=== PATIENT | male | born 1985 | race Caucasian/White ===

== ENCOUNTER 2022-05-21 04:06 | Emergency (ER) | payer OTHER ==
[2022-05-21 04:31] VITALS: BP 158/92; PULSE 70; RESP 20; TEMP 98.4; BMI 42.3
[2022-05-21] MEDS ORDERED: DEXAMETHASONE SOD PHOSPHATE 10 MG/1 ML VIAL IM ONE (05:22)
[2022-05-21] MEDS ORDERED: KETOROLAC TROMETHAMINE 30 MG/1 ML VIAL IM ONE (05:22)
[2022-05-21] MEDS ORDERED: AMOX TR/POT CLAV 875MG/125MG TABLETS (FP) PO ONE (05:26)
[2022-05-21] MEDS ORDERED: DEXAMETHASONE SOD PHOSPHATE 10 MG/1 ML VIAL ONE (05:30)
[2022-05-21] MEDS ORDERED: AMOX TR/POT CLAV 875MG/125MG TABLETS (FP) ONE (05:30)
[2022-05-21] MEDS ORDERED: KETOROLAC TROMETHAMINE 30 MG/1 ML VIAL ONE (05:30)
== END 2022-05-21 06:56 | disposition home or self-care (01) ==
LOC: JER 04:06
PROC: 3E023GC Introduction of Other Therapeutic Substance into Muscle, Percutaneous Approach (ICD-10-PCS; principal; 2022-05-21)
DX: H66.92 Otitis media, unspecified, left ear (principal)
CPT/HCPCS: 0241U-QW; 82962; 99284-25; J1100

== ENCOUNTER 2022-11-05 07:23 | Emergency (ER) | payer OTHER ==
[2022-11-05 07:27] VITALS: BP 156/82; PULSE 61; RESP 18; TEMP 97.8; BMI 35.9
[2022-11-05] MEDS ORDERED: ONDANSETRON 4 MG/2 ML VIAL IVPUSH ONE ×2 (07:51→08:07)
[2022-11-05] MEDS ORDERED: FAMOTIDINE 20 MG/50 ML IVPB 20 MG/50 ML MG IVPB ONE ×3 (07:51→08:23)
[2022-11-05] MEDS ORDERED: LACTATED RINGERS SOLUTION 1000 ML INFUS.BAG IV ONE ×4 (07:51→09:39)
[2022-11-05] MEDS ORDERED: morphine CARPU-JECT 4 MG/1 ML DISP.SYRIN IVPUSH ONE (07:52)
[2022-11-05 08:43] LABS: BASO % 0.5 % (0-2.0); EOS % 2.7 % (0-4.5); HEMOGLOBIN 16.1 GM/dL (11.7-16.9); LYMPH % 27.3 % (8-40); MCH 30.2 pg (25.7-33.7); MCHC 35.8 g/dl (32.0-35.9); MEAN CELL VOLUME 84.4 fl (80-96); MEAN PLT VOLUME 8.2 fl (7.5-11.1); MONO % 10.1 % (3.8-10.2); NEUT % 59.4 % (42.8-82.8); PLATELET COUNT 175 10^3/uL (134-434); RBC 5.33 M/mm3 (4.00-5.60); RDW 12.8 % (11.9-15.9); WHITE BLOOD COUNT 6.3 K/mm3 (4.0-10.0)
[2022-11-05 08:55] LABS: CALCIUM 8.4 mg/dL (8.5-10.1)
[2022-11-05 08:56] LABS: ALBUMIN 3.8 g/dl (3.4-5.0); BLOOD UREA NITROGEN 12.9 mg/dL (7-18)
[2022-11-05 08:58] LABS: PHOSPHOROUS 3.4 mg/dL (2.5-4.9)
[2022-11-05 08:59] LABS: CREATININE 0.9 mg/dL (0.55-1.3)
[2022-11-05 09:00] LABS: BILIRUBIN,TOTAL 0.4 mg/dL (0.2-1); TOT PROT 7.2 g/dl (6.4-8.2)
[2022-11-05] MEDS ORDERED: HYDROmorphone HCL CARPU-JECT 2 MG/1 ML DISP.SYRIN IVPUSH ONE (09:39)
== END 2022-11-05 10:15 | disposition home or self-care (01) ==
LOC: JER 07:23
PROC: 3E033GC Introduction of Other Therapeutic Substance into Peripheral Vein, Percutaneous Approach (ICD-10-PCS; principal; 2022-11-05)
DX: K52.9 Noninfective gastroenteritis and colitis, unspecified (principal); R11.2 Nausea with vomiting, unspecified; R19.7 Diarrhea, unspecified
CPT/HCPCS: 0241U-QW; 36415; 80053; 83690; 83735; 84100; 85025; 99284-25